=== PATIENT | female | born 1955 | race Caucasian/White ===

== ENCOUNTER → 2017-10-04 | Outpatient (CLI) | payer BC ==
--- NOTE | 2017-10-04 13:12 | Diagnostic Imaging Report ---
EXAM: DXA BONE DENSITY INDICATIONS: Postmenopausal screening COMPARISON: None. FINDINGS: Left femoral neck bone mineral density (BMD) (g/cm2):0.734 Femur T-score (standard deviation relative to young adult mean BMD):-1 Femur Z-score (standard deviation relative to age-matched control group):0.3 Lumbar bone mineral density (BMD) (g/cm2):0.965 Lumbar T-score (standard deviation relative to young adult mean BMD): -0.7 Lumbar Z-score (standard deviation relative to age-matched control group):0.8 CONCLUSION: WHO bone mineral classification: Normal Dictated by: Real Zheng M.D. on 10/04/2017 at 13:14 Electronically approved by: Real Zheng M.D. on 10/04/2017 at 13:14
== END ==
LOC: DX 11:32
PROVIDERS: ATTEND Family Medicine
DX: Z12.31 Encounter for screening mammogram for malignant neoplasm of breast (principal); Z13.820 Encounter for screening for osteoporosis
CPT/HCPCS: 77067; 77080

== ENCOUNTER → 2020-10-20 | Day surgery (SDC) | payer BC ==
[~2020-10-20] MED LIST: CENTRUM ADULTS1 EACH PO; ENBREL50 MG/1 M1 INJ; FENTANYL CITRATE/PF 100MCG/2 ML INJ ONE; FOLIC ACID0.8 MG PO; GABAPENTIN300 MG PO; LIDOCAINE HCL 2% LOCAL INJ 5 ML SDV VIAL INJ ONE; MIDAZOLAM HCL 2 MG/2 ML VIAL ONE; PANTOPRAZOLE SO40 MG PO; POVIDONE IODINE 0.05% 0.05 % ML PO ONE; PROPOFOL IV EMULSION 10 MG/ML 20 ML VIAL ONE
[2020-10-20 11:50] VITALS: BP 114/68
== END | disposition home or self-care (01) ==
LOC: OR 09:00
PROVIDERS: ATTEND Internal Medicine Gastroenterology
DX: K29.00 Acute gastritis without bleeding (principal); K22.70 Barrett's esophagus without dysplasia; K21.00 Gastro-esophageal reflux disease with esophagitis, without bleeding; K44.9 Diaphragmatic hernia without obstruction or gangrene; Z86.010 Personal history of colon polyps; Z71.3 Dietary counseling and surveillance; E66.9 Obesity, unspecified; M19.90 Unspecified osteoarthritis, unspecified site; M06.9 Rheumatoid arthritis, unspecified; G40.909 Epilepsy, unspecified, not intractable, without status epilepticus; Z68.36 Body mass index [BMI] 36.0-36.9, adult
CPT/HCPCS: 43239; 88305; 88312; 93005; J2001; J2250; J2704; J3010